=== PATIENT | male | born 1960 | race African-American/Black ===

== ENCOUNTER → 2017-09-03 | Outpatient (CLI) | payer OTHER | END | disposition home or self-care (01) | LOC: KCIC US 08:41 | DX: I10 Essential (primary) hypertension (principal); R42 Dizziness and giddiness | CPT/HCPCS: 93880 ==

== ENCOUNTER → 2020-04-28 | Outpatient (CLI) | payer OTHER ==
[2018-08-20 11:00] VITALS: BP 130/70
[~2020-04-28] MED LIST: ATEN50TA PO; ATOR20TA PO; Aspirin PO; CARV25TA2 PO; CRESTOR40 MG PO; EZET10TA20 PO; LABE100T5 PO; LABE200T24 PO; LOSA-73 PO; NITR0.4T22 SL; SPIR25TA5 PO; TAMS0.4C97 PO; TICA60TA PO
== END | disposition home or self-care (01) ==
LOC: LAB 14:47
PROVIDERS: ATTEND Nurse Practitioner
DX: Z01.812 Encounter for preprocedural laboratory examination (principal); Z12.11 Encounter for screening for malignant neoplasm of colon; Z20.828 Contact with and (suspected) exposure to other viral communicable diseases
CPT/HCPCS: U0003-CS

== ENCOUNTER → 2020-05-01 | Day surgery (SDC) | payer OTHER ==
[~2020-05-01] MED LIST changes: +IV RINGERS,LACTATED 1000ML 1,000 ML IV SCH; +PROPOFOL 10 MG/ML (20ML) VIAL. IV ONE
--- NOTE | 2020-05-01 14:29 | PDOC4 ---
PROCEDURE Procedure Colonoscopy with polypectomy. Indication; CRC screening Meds; per anesthesia Findings: BINH normal --'Scope advanced to cecum. Mucosa normal. No tics. LARGE 3+ cm pedunculated polyp in mid-sigmoid removed piecemeal. Clip x 2 on stalk remnant. Internal hemorrhoids noted. Sameera. well. IMP: large polyp, removed. Internal hemorrhoids. REC: no ASA, NSAIDs for 2 weeks. Await path. Repeat colonoscopy pending path. Resume diet, meds save ASA as before. F/u with me in 2 weeks. DELORES CARVER MD May 01, 2020 14:28
[2020-05-01 14:52] VITALS: BP 149/74
--- NOTE | 2020-05-03 15:08 | PATHOLOGY ---
[facility] Accession Number: [id number] . 01 Material submitted: . sigmoid colon - SIGMOID POLYP . 01 Clinical history: . SCREENING . 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 - Base of polyp lined by normal colonic mucosa showing coagulative changes. (JPM:[facility] 05/03/2020) QTP 05/03/2020 1148 Local . 02 Electronically signed: . Joe Thorpe MD, Pathologist NPI- [id number] . 01 Gross description: . The specimen is received in formalin, labeled "Colby Walker, sigmoid polyp". Received are three segments of red-brown polypoid tissue ranging in size from 1.1 x 1.1 x 0.5 to 2.5 x 1.7 x 1.7 cm in greatest dimensions. The surgical margins of the larger two segments are not discernible grossly due to the friable nature of the segments. The larger segment has an attached stalk measuring 0.6 cm in length by 0.7 cm in diameter and the margin is inked black. The specimen is submitted entirely as follows: . A1 smaller segment, trisected (fragmentation may occur upon processing) A2-A3 second segment, quadrisected (fragmentation has occurred upon sectioning) A4-A7 larger segment, serially sectioned (fragmentation has occurred upon sectioning). (CAA; 05/02/2020) QAC/QAC 05/03/2020 1147 Local . 02 Pathologist provided ICD-10: D12.5 . 02 CPT . 013445 Specimen Comment: A courtesy copy of this report has been sent to [phone], [phone] Specimen Comment: [id number] Specimen Comment: Report sent to / DR CAMPBELL Performed at: 01 [facility] [address], [place], [place] [id number] MD Alex Brooks MD Phone: [phone] Performed at: 02 [facility] [address], [place] [id number] MD Joe Thorpe MD Phone: [phone]
== END | disposition home or self-care (01) ==
LOC: ENDOS 11:18
PROVIDERS: ATTEND Internal Medicine Gastroenterology
DX: Z12.11 Encounter for screening for malignant neoplasm of colon (principal); D12.5 Benign neoplasm of sigmoid colon; K64.8 Other hemorrhoids; I10 Essential (primary) hypertension; Z79.899 Other long term (current) drug therapy
CPT/HCPCS: 45385; 88305; J2704